=== PATIENT | female | born 1970 | race Caucasian/White ===

== ENCOUNTER 2017-05-10 15:45 | Emergency (ER) | payer OTHER ==
[~2017-05-10] VITALS: Ht 162.6 cm; Wt 88.4 kg
[~2017-05-10 15:45] MED LIST: ASPIRIN325 MG PO; ATIVAN1 MG PO; CLEOCIN300 MG PO; FLEXERIL10 MG PO; FLEXERIL5 MG PO; HYDROCODON-ACE1 EAC7 PO; HYDROCODON-ACE1 EAC8 PO; MACROBID100 MG PO; MOTRIN600 MG PO; MOTRIN800 MG PO; MULTIPLE VITAM1 EAC1 PO; NAPROSYN500 MG PO; NAPROXEN500 MG PO; PEN-VEE K,VEET500 MG PO; PROBIOTIC1 EAC1 PO; TIZANIDINE HCL4 MG PO; TRAMADOL HCL50 MG PO; WOMEN'S DAILY1 EAC1 PO
[2017-05-10] MEDS ORDERED: NORCO 10/3251 TABLET PO (19:20)
[2017-05-10] MEDS ORDERED: MOTRIN800 MG PO (19:20)
[2017-05-10 19:45] VITALS: BP 101/91
== END 2017-05-10 19:46 | disposition home or self-care (01) ==
LOC: EME 15:45
DX: G56.02 Carpal tunnel syndrome, left upper limb (principal); F41.9 Anxiety disorder, unspecified; F17.200 Nicotine dependence, unspecified, uncomplicated
CPT/HCPCS: 99281; 99284

== ENCOUNTER 2017-09-02 14:49 | Emergency (ER) | payer OTHER ==
[~2017-09-02] VITALS: Ht 162.6 cm; Wt 87.5 kg
[~2017-09-02 14:49] MED LIST changes: +NORCO 10/3251 TABLET PO
[2017-09-02] MEDS ORDERED: AUGMENTIN875 MG PO (16:42)
[2017-09-02] MEDS ORDERED: ULTRACET1 TABLET PO (16:42)
[2017-09-02] MEDS ORDERED: INDOCIN50 MG PO (16:42)
[2017-09-02 17:03] VITALS: BP 104/81
== END 2017-09-02 17:16 | disposition home or self-care (01) ==
LOC: EME 14:49
DX: K02.9 Dental caries, unspecified (principal); K04.7 Periapical abscess without sinus; F17.200 Nicotine dependence, unspecified, uncomplicated; F41.9 Anxiety disorder, unspecified
CPT/HCPCS: 99281; 99284; J1100; J1885

== ENCOUNTER 2018-01-18 12:30 | Emergency (ER) | payer OTHER ==
[~2018-01-18] VITALS: Ht 160 cm; Wt 87.0 kg
[~2018-01-18 12:30] MED LIST changes: +AUGMENTIN875 MG PO; +INDOCIN50 MG PO; +ULTRACET1 TABLET PO
[2018-01-18 15:04] LABS: APPEARANCE SL.HAZY ((CLEAR)); BILIRUBIN NEGATIVE; BLOOD NEGATIVE; COLOR YELLOW ((YELLOW)); GLUCOSE (STRIP) NEGATIVE; KETONES NEGATIVE; LEUKOCYTES TRACE; NITRITE NEGATIVE; PROTEIN (STRIP) NEGATIVE; UROBILINOGEN 0.2 MG/DL (0.2-1.0)
[2018-01-18 15:10] LABS: BACTERIA 3+ /HPF; EPITHELIAL CELLS 1+ /HPF; MUCUS 2+ /LPF; UCUL ADDED? YES; WHITE BLOOD CELLS 0-5 /HPF (0-5)
[2018-01-18] MEDS ORDERED: KEFLEX500 MG PO (15:34)
[2018-01-18] MEDS ORDERED: LIDODERM 5% P1 PATCH TD (16:35)
[2018-01-18] MEDS ORDERED: SKELAXIN800 MG PO (16:35)
[2018-01-18] MEDS ORDERED: MOBIC7.5 MG PO (16:35)
[2018-01-18 16:53] VITALS: BP 118/85
== END 2018-01-18 16:55 | disposition home or self-care (01) ==
LOC: EME 12:30
PROVIDERS: Nurse Practitioner Family
DX: M54.9 Dorsalgia, unspecified (principal); N39.0 Urinary tract infection, site not specified; G89.29 Other chronic pain; F41.9 Anxiety disorder, unspecified; F17.200 Nicotine dependence, unspecified, uncomplicated; Z90.49 Acquired absence of other specified parts of digestive tract
CPT/HCPCS: 81003; 87086; 99281; 99284; J1885

== ENCOUNTER 2018-03-11 14:33 | Emergency (ER) | payer OTHER ==
[~2018-03-11] VITALS: Ht 160 cm; Wt 91.2 kg
[~2018-03-11 14:33] MED LIST changes: +KEFLEX500 MG PO; +LIDODERM 5% P1 PATCH TD; +MOBIC7.5 MG PO; +SKELAXIN800 MG PO
[2018-03-11] MEDS ORDERED: NEURONTIN300 MG PO (14:48)
[2018-03-11 15:00] LABS: BASOPHIL (%) 0.1 % (0-1); EOSINOPHIL (%) 0.2 % (0-5); HEMATOCRIT 39.9 % (36.0-46.0); IMMATURE GRANULOCYTE (%) 0.4 % (0.0-0.7); LYMPHOCYTE (%) 5.9 % (15-42); LYMPHOCYTE COUNT 0.8 K/uL (1.0-2.8); MCH 33.3 PG (29.0-34.0); MCHC 35.1 G/DL (30.0-36.0); MCV 94.8 FL (83-99); MONOCYTE (%) 1.6 % (3-12); MONOCYTE COUNT 0.2 K/uL (0-0.8); NEUTROPHIL (%) 91.8 % (45-76); NEUTROPHIL COUNT 12.8 K/uL (1.8-6.4); PLATELET COUNT 217 K/uL (156-360); RBC DIS.WIDTH-CV 12.8 % (11.8-14.6); RED BLOOD COUNT 4.21 M/uL (3.80-5.20)
[2018-03-11 15:09] LABS: CHLORIDE 108 mEq/L (99-109); SODIUM 140 mEq/L (136-147)
[2018-03-11 15:10] LABS: MAGNESIUM 2.2 mg/dL (1.3-2.7)
[2018-03-11 15:11] LABS: GLUCOSE 104 mg/dL (70-99); TOTAL PROTEIN 6.8 g/dL (6.4-8.3)
[2018-03-11 15:13] LABS: TOTAL BILIRUBIN 0.5 mg/dL (0.0-1.0)
[2018-03-11 15:15] LABS: ALKALINE PHOSPHATASE 87 IU/L (3-129); CREATININE 0.7 mg/dL (0.6-1.3); GFR ESTIMATE (CALCULATED) > 59 mL/min/
[2018-03-11 15:16] LABS: UREA NITROGEN (BUN) 16 mg/dL (9-23)
[2018-03-11 15:17] LABS: AST (GOT) 15 IU/L (2-34)
[2018-03-11 15:18] LABS: ALT (GPT) 16 IU/L (3-49); LIPASE 17 U/L (1.0-51.0)
[2018-03-11 16:01] LABS: QUANTITATIVE HCG < 4.0 MIU/ML
[2018-03-11 16:58] LABS: APPEARANCE CLEAR ((CLEAR)); BILIRUBIN NEGATIVE; BLOOD SMALL; COLOR YELLOW ((YELLOW)); GLUCOSE (STRIP) NEGATIVE; KETONES NEGATIVE; LEUKOCYTES NEGATIVE; NITRITE NEGATIVE; PROTEIN (STRIP) NEGATIVE; SPECIFIC GRAVITY 1.018 (1.000-1.030); UROBILINOGEN 0.2 MG/DL (0.2-1.0)
[2018-03-11 17:02] LABS: BACTERIA RARE /HPF; EPITHELIAL CELLS NONE SEEN /HPF; MUCUS TRACE /LPF; RED BLOOD CELLS 0-5 /HPF (0-5); UCUL ADDED? NO; WHITE BLOOD CELLS 0-5 /HPF (0-5)
[2018-03-11] MEDS ORDERED: ZOFRAN ODT4 MG PO (17:44)
[2018-03-11 18:00] VITALS: BP 115/72
== END 2018-03-11 18:02 | disposition home or self-care (01) ==
LOC: EME 14:33
PROVIDERS: Emergency Medicine
DX: K52.9 Noninfective gastroenteritis and colitis, unspecified (principal); F17.200 Nicotine dependence, unspecified, uncomplicated; F41.9 Anxiety disorder, unspecified; Z90.49 Acquired absence of other specified parts of digestive tract
CPT/HCPCS: 80053; 81003; 83690; 83735; 84702; 85025; 93005; 99281; 99285; J2405; J7040; S0028